=== PATIENT | female | born 1960 | race African-American/Black ===

== ENCOUNTER 2020-09-04 12:26 | Emergency (ER) | payer BC ==
[~2020-09-04] VITALS: Ht 180.3 cm; Wt 83.9 kg
--- NOTE | 2020-09-04 13:25 | NUR ---
ED Nurse Note: Patient presents to ER due to burning pain with urination, intermittently for the past few days. Reports no fever, chills or N/V or loss of taste or smell, CP or SOB/dyspnea. Patient awake, alert, oriented x 4. Regular, unlabored breathing noted. Bed in lowest position. No facial grimacing or guarding noted.
[2020-09-04 13:31] LABS: APPEARANCE,URINE SLIGHTLY CLOUDY; BILIRUBIN, URINE NEGATIVE (NEGATIVE); COLOR,URINE PALE YELLOW; GLUCOSE, URINE (UA) NEGATIVE (NEGATIVE); KETONES,URINE NEGATIVE (NEGATIVE); LEUKOCYTE ESTERASE ,URINE 3+ (NEGATIVE); NITRITE,URINE NEGATIVE (NEGATIVE); PH,URINE 5 (4.5-8.0); PROTEIN,URINE 3+ (NEGATIVE); UROBILINOGEN,URINE NORMAL MG/DL (0.0-1.0)
--- NOTE | 2020-09-04 15:03 | Emergency Room Report ---
History of Present Illness General Chief Complaint: Female Urogenital Problems Source: Patient Present Illness HPI 59 YO female presents to the ED c/o malodorous watery vaginal DC that has been "pouring" out of her several times throughout the day x months. Pt. denies pelvic pain or tenderness, abdominal pain or tenderness, N/V, constipation or diarrhea. Pt. denies hx of urinary incontinence. Pt. denies back injury or recent surgeries. Pt. reports only surgery in her past was " years ago". Pt. denies suspicion for STI. She also reports intermittent 7/10 in severity generalized RYAN that responds to OTC pain medications. Denies neck pain/stiffness, dizziness, or photophobia. She denies paresthesias, facial droop, loss of gross motor movements, or sudden onset of her RYAN. She denies dysuria, hematuria, or urgency. She does report urinary frequency. Pt. reports she has been wearing pads x months. She denies recent antibiotic use. Allergies: Coded Allergies: No Known Allergies (Unverified , 09/04/20) COVID-19 Screening Contact w/high risk pt: No Experienced COVID-19 symptoms?: No COVID-19 Testing performed STERILE PROC TECH: No Patient History Past Medical History: see triage record Past Surgical History: none Pertinent Family History: none Now: No Reviewed Nursing Documentation: PMH: Agreed; PSxH: Agreed Nursing Documentation-PMH Past Medical History: No Stated History Review of Systems All Other Systems: negative except mentioned in HPI Physical Exam Vital Signs Date Time Temp Pulse Resp B/P (MAP) Pulse Ox O2 Delivery O2 Flow Rate FiO2 09/04/20 12:42 98.2 105 17 143/79 (100) 99 Room Air Sp02 EP Interpretation: reviewed, normal General Appearance: no apparent distress, alert, GCS 15, non-toxic Head: normocephalic, atraumatic Eyes: bilateral eye normal inspection, bilateral eye PERRL, bilateral eye other - No photophobia ENT: hearing grossly normal, normal voice Neck: full range of motion, no meningismus, no bony tend Respiratory: lungs clear, normal breath sounds, speaking full sentences Cardiovascular #1: regular rate, rhythm Gastrointestinal: normal bowel sounds, non tender, soft, non-distended, no guarding Rectal: deferred Genitourinary: normal inspection, no CVA tenderness, adnexa normal, ext genitalia/vag normal, other - extremely watery d/c that is clear in appearance and has slight yellow/orange hue on cotton tip applicator is found in the vaginal vault. ( similar in appearance to urine) No opaque vaginal D/c. The cervix is slightly prolapsed. No CMT. No adnexal ttp. no blood. No genital lesions or rashes. Musculoskeletal: back normal, normal range of motion, gait/station normal, non- tender Neurologic: alert, motor strength/tone normal, oriented x3, sensory intact, responsive, speech normal Psychiatric: judgement/insight normal Lymphatic: no adenopathy Medical Decision Making PA Attestation Dr. Mello is my supervising Physician whom patient management has been discussed with. Diagnostic Impression: Primary Impression: UTI (urinary tract infection) Qualified Codes: N30.01 - Acute cystitis with hematuria Additional Impression: Abnormal urogenital findings ER Course 59 YO female presents to the ED c/o malodorous watery vaginal DC that has been "pouring" out of her several times throughout the day x months. Pt. denies pelvic pain or tenderness, abdominal pain or tenderness, N/V, constipation or diarrhea. Pt. denies hx of urinary incontinence. Pt. denies back injury or recent surgeries. Pt. reports only surgery in her past was " years ago". Pt. denies suspicion for STI. She also reports intermittent 7/10 in severity generalized RYAN that responds to OTC pain medications. Denies neck pain/stiffness, dizziness, or photophobia. She denies paresthesias, facial droop, loss of gross motor movements, or sudden onset of her RYAN. She denies dysuria, hematuria, or urgency. She does report urinary frequency. Pt. reports she has been wearing pads x months. She denies recent antibiotic use. Ddx considered but are not limited to UTi , Pyelo, STI, Stone, Cystitis, STI, vaginitis or urinary incontinence Vital signs: are WNL, pt. is afebrile H& PE are most consistent with: suspicion for vesicouterovaginal fistula due to collection of fluid in the vaginal vault that is very similar to urine in appearance. ORDERS: - UA labs are attached : Increase in inflammatory markers with equal amounts of bacteria and squamous cells. Due to patient having urinary symptoms we will treat as UTI pending reflux - [place] : No clue cells no trichomoniasis no yeast. inflammatory markers visualized. ED INTERVENTIONS: -None required at this time. D/w Pt. most appropriate follow-up evaluations would be with your urology and gynecology. -I do not identify an emergent condition at this time. With current presentation, pt. is stable for close outpatient follow up and conservative treatment. D/w pt. to return promptly to ED with worsening or new symptoms.- Pt. verbalizes' understanding and agreement with proposed treatment plan. DISCHARGE: At this time pt. is stable for d/c to home. Will provide printed patient care instructions, and any necessary prescriptions. Care plan and follow up instructions have been discussed with the patient prior to discharge. discussed with the patient prior to discharge. Labs Test 09/04/20 12:50 Urine Color Pale yellow Urine Appearance Slightly cloudy Urine pH 5 (4.5-8.0) Urine Specific [place] 1.020 (1.005-1.035) Urine Protein 3+ (NEGATIVE) Urine Glucose (UA) Negative (NEGATIVE) Urine Ketones Negative (NEGATIVE) Urine Blood 4+ (NEGATIVE) Urine Nitrite Negative (NEGATIVE) Urine Bilirubin Negative (NEGATIVE) Urine Urobilinogen Normal MG/DL (0.0-1.0) Urine Leukocyte Esterase 3+ (NEGATIVE) Urine RBC 2-4 /HPF (0 - 2) Urine WBC 20-30 /HPF (0 - 2) Urine Squamous Epithelial Cells Few /LPF (NONE/OCC) Urine Bacteria Few /HPF (NONE) Last Vital Signs Date Time Temp Pulse Resp B/P (MAP) Pulse Ox O2 Delivery O2 Flow Rate FiO2 09/04/20 12:42 98.2 105 17 143/79 (100) 99 Room Air Disposition: HOME, SELF-CARE Condition: Stable Scripts Phenazopyridine Hcl* (PYRIDIUM*) 200 Mg Tablet 200 MG ORAL THREE TIMES A DAY for 3 Days, #9 TAB 0 Refills Prov: Marlen Galvez 09/04/20 Cephalexin* (KEFLEX*) 500 Mg Capsule 500 MG ORAL EVERY 12 HOURS for 7 Days, #14 CAP 0 Refills Prov: Marlen Galvez 09/04/20 Referrals: NON PHYSICIAN (PCP) Carlton Tinoco MD Patient Instructions: Urinary Tract Infection, [id number] Additional Instructions: Take medications as directed. Follow up with a Primary Care Provider in 3-5 days For a referral to have UROLOGIST ( Urinary tract specialist) and BRICK CATCHER Evaluation, even if your symptoms have resolved. There is concern for possible fistula involving the urinary tract. On the next page is the contact info for one of the urologists we use on- call. Return sooner to ED if new symptoms occur, or current symptoms become worse. - Please note that this Emergency Department Report was dictated using [email or web address] delivery supervisor technology software, occasionally this can lead to erroneous entry secondary to interpretation by the dictation equipment. Marlen Galvez Sep 04, 2020 15:03
[2020-09-04 15:06] VITALS: BP 120/78
[2020-09-04] MEDS ORDERED: CEPHALEXIN500 MG ORAL (15:06)
[2020-09-04] MEDS ORDERED: PHENAZOPYRIDIN200 MG ORAL (15:06)
--- NOTE | 2020-09-04 15:10 | NUR ---
ER DISCHARGE NOTE: Patient is cleared to be discharged per P.A. D/C instruction and prescriptions given to patient. Patient verbalized understanding of it. Patient ambulated out with steady gait with all her belongings.
== END 2020-09-04 15:10 | disposition home or self-care (01) ==
LOC: EMR 13:48
DX: N30.01 Acute cystitis with hematuria (principal); R87.4 Abnormal immunological findings in specimens from female genital organs
CPT/HCPCS: 81003; 87086; 87210; 99283